=== PATIENT | male | born 1980 | race Caucasian/White ===

== ENCOUNTER 2023-06-24 06:55 | Day surgery (SDC) | payer OTHER ==
[2023-06-24] VITALS (232 sets, daily range): BP systolic 94–142; BP diastolic 52–98
[~2023-06-24] VITALS: Ht 175.3 cm; Wt 74.0 kg
[2023-06-24 08:15] LABS: BASO% 0.7 % (0-3); EOS% 4.8 % (0-8); HEMATOCRIT 43.2 % (39.0-50.0); HEMOGLOBIN 14.3 g/dl (14.0-18.0); IMMATURE GRANULOCYTES 0.2 % (0.0-5.0); LYMPH% 41.7 % (15-41); MEAN CELL VOLUME 86.6 fL CALC (80.0-100.0); MEAN CORPUSCULAR HGB 28.7 pG CALC (26.0-32.0); MEAN CORPUSCULAR HGB CONC 33.1 g/dL CAL (32.0-36.0); MONO% 8.5 % (2-13); NEUT# 2.49 thou/uL (1.82-7.42); NEUT% 44.1 % (42-76); RED BLOOD COUNT 4.99 mill/uL (4.70-6.10); RED CELL DISTRI WIDTH 13.4 % (11.5-15.5)
[2023-06-24 08:35] LABS: ALBUMIN 4.3 g/dL (3.2-5.0); ALKALINE PHOSPHATASE 73 u/l (38-126); ANION GAP 11 (6-22 (CALC)); BILIRUBIN, TOTAL 0.4 mg/dL (0.2-1.3); BUN 17 mg/dL (9-20); BUN/CREATININE RATIO 17 (12-20 (CALC)); CARBON DIOXIDE 33 mmol/l (22-30); CHLORIDE 100 mmol/l (95-108); GFR FOR AFR.AMER. > 60 ML/MIN (>=60 (CALC)); GFR OTHER RACES > 60 ML/MIN (>=60 (CALC)); POTASSIUM 3.7 mmol/l (3.5-5.1); SGOT/AST 110 u/l (17-59); SODIUM 140 mmol/l (137-146); TOTAL PROTEIN 7.6 g/dL (6.3-8.2)
[2023-06-24] MEDS ORDERED: CLONIDINE0.1 MG PO (16:24)
[2023-06-24] MEDS ORDERED: NALTREXONE50 MG PO (16:24)
[2023-06-24] MEDS ORDERED: KLONOPIN2 MG PO (16:25)
[2023-06-25 03:49] VITALS: BP 112/57
[2023-06-25 05:52] LABS: BASO% 0.1 % (0-3); HEMATOCRIT 41.8 % (39.0-50.0); HEMOGLOBIN 14.4 g/dl (14.0-18.0); IMMATURE GRANULOCYTES 0.4 % (0.0-5.0); MEAN CELL VOLUME 83.4 fL CALC (80.0-100.0); MEAN CORPUSCULAR HGB 28.7 pG CALC (26.0-32.0); MEAN CORPUSCULAR HGB CONC 34.4 g/dL CAL (32.0-36.0); MONO% 1.7 % (2-13); NEUT# 11.88 thou/uL (1.82-7.42); NEUT% 91.8 % (42-76); RED BLOOD COUNT 5.01 mill/uL (4.70-6.10); RED CELL DISTRI WIDTH 13.3 % (11.5-15.5)
[2023-06-25 06:18] LABS: ALBUMIN 4.4 g/dL (3.2-5.0); ALKALINE PHOSPHATASE 77 u/l (38-126); BUN 12 mg/dL (9-20); BUN/CREATININE RATIO 13 (12-20 (CALC)); CHLORIDE 102 mmol/l (95-108); CREATININE 0.9 mg/dL (0.7-1.3); GFR FOR AFR.AMER. > 60 ML/MIN (>=60 (CALC)); GFR OTHER RACES > 60 ML/MIN (>=60 (CALC)); MAGNESIUM 2.1 mg/dL (1.6-2.3); POTASSIUM 3.9 mmol/l (3.5-5.1); SGOT/AST 83 u/l (17-59); SODIUM 138 mmol/l (137-146); TOTAL PROTEIN 7.6 g/dL (6.3-8.2)
[2023-06-25 06:20] LABS: ANION GAP 20 (6-22 (CALC)); BILIRUBIN, TOTAL 0.7 mg/dL (0.2-1.3); CARBON DIOXIDE 20 mmol/l (22-30)
[2023-06-25 06:57] VITALS: BP 122/65
== END 2023-06-25 16:29 | disposition left against medical advice (07) | DRG 894 ==
LOC: ANR 06:55 → MS2 07:28 → ANR 07:28 → MS2 17:48 → ANR 06-25 16:29 → MS2 06-25 16:29
PROVIDERS: ATTEND Anesthesiology Critical Care Medicine
DX: F11.20 Opioid dependence, uncomplicated (principal)
CPT/HCPCS: J2060; J2354; J3475; S0164